=== PATIENT | male | born 1960 | race Caucasian/White ===

== ENCOUNTER 2024-07-04 20:13 | Observation (INO) | payer OTHER ==
[2024-07-04] MEDS: Acetaminophen/HYDROcodone 325-10 MG Tab PO ONE (21:10)
[2024-07-04] MEDS: Gabapentin 300 MG Cap PO ONE (21:15)
[2024-07-04] MEDS: HYDROmorphone 0.5 MG/0.5 ML Syringe IVPUSH ONE (22:39)
[2024-07-05] MEDS ORDERED: LORazepam 2 MG/ML SDV IV PRN (00:36)
[2024-07-05] MEDS ORDERED: Acetaminophen 325 MG Tab PO PRN (00:36)
[2024-07-05] MEDS ORDERED: Naloxone 0.4 MG/ML SDV IVPUSH PRN (00:36)
[2024-07-05 00:54] LABS: BASOPHILS PERCENT AUTO 0.3 % (0.1-1.3); EOSINOPHILS ABSOLUTE AUTO 0.07 K/uL (0.00-0.40); EOSINOPHILS PERCENT AUTO 0.9 % (0.0-5.4); HEMATOCRIT 36.4 % (38.4-49.7); HEMOGLOBIN 13.5 g/dL (12.9-16.9); IMMATURE GRAN ABSOLUTE AUTO 0.06 K/uL (0.00-0.23); IMMATURE GRAN PERCENT AUTO 0.8 % (0.0-0.7); LYMPHOCYTES ABSOLUTE AUTO 1.55 K/uL (0.8-3.3); MEAN CORPUSCULAR HEMOGLOBIN 32.9 pg (31.6-35.5); MEAN CORPUSCULAR HGB CONC 37.1 g/dL (31.6-35.5); MEAN CORPUSCULAR VOLUME 88.8 fL (81.4-99.0); MONOCYTES ABSOLUTE AUTO 0.77 K/uL (0.20-0.90); MONOCYTES PERCENT AUTO 10.4 % (3.3-12.6); NEUTROPHILS ABSOLUTE AUTO 4.91 K/uL (1.0-7.6); NEUTROPHILS PERCENT AUTO 66.6 % (40.0-78.1); PLATELET COUNT,PLT 211 K/uL (130-375); WHITE BLOOD CELL COUNT,WBC 7.4 K/uL (3.2-11.0)
[2024-07-05 00:56] LABS: BASOPHILS ABSOLUTE AUTO 0.02 K/uL (0.00-0.10)
[2024-07-05] MEDS: oxyCODONE 5 MG Tab PO PRN (01:06)
[2024-07-05] MEDS: Docusate Sodium 100 MG Cap PO SCH (01:06)
[2024-07-05] MEDS: Enoxaparin 40 MG/0.4 ML Syringe SUBCUT SCH ×2 (01:07→20:12)
[2024-07-05] MEDS: Sodium Chloride 0.9% 1,000 ML IV SCH (01:11)
[2024-07-05 01:13] LABS: CREATININE 1.2 mg/dL (0.8-1.3); EST CRCL DRUG DOSING (CG) 58.14 mL/min
[2024-07-05] MEDS: atorvaSTATin 10 MG Tab PO SCH (01:16)
[2024-07-05] MEDS: Lisinopril 5 MG Tab PO ONE (01:16)
[2024-07-05] MEDS: Ketorolac 30 MG/ML SDV IVPUSH SCH ×2 (01:26→08:24)
[2024-07-05] MEDS: Morphine 2 MG/ML SYRINGE IVPUSH PRN (02:31)
[2024-07-05 05:46] LABS: APPEARANCE,URINE CLEAR (CLEAR); BILIRUBIN,URINE NEGATIVE (NEGATIVE); COLOR,URINE YELLOW (YELLOW); GLUCOSE,URINE NEGATIVE (NEGATIVE); KETONES,URINE NEGATIVE (NEGATIVE); LEUKOCYTE ESTERASE,URINE NEGATIVE (NEGATIVE); NITRITE,URINE NEGATIVE (NEGATIVE); OCCULT BLOOD,URINE NEGATIVE (NEGATIVE); PROTEIN,URINE NEGATIVE (NEGATIVE); UROBILINOGEN,URINE 0.2 EU/dL (0.2-1.0)
[2024-07-05 05:55] LABS: AMORPHOUS SEDIMENT,URINE RARE; BACTERIA,URINE NOT SEEN; EPITHELIAL CELLS,URINE NOT SEEN; MUCUS,URINE NOT SEEN; RBC,URINE 0-5 (0-5); WBC,URINE NOT SEEN (0-5)
[2024-07-05] MEDS: Ondansetron 4 MG Tab.DIS PO PRN (08:31)
[2024-07-05] MEDS ORDERED: Gabapentin 100 MG Cap PO SCH ×2 (09:00)
[2024-07-05] MEDS: Gabapentin 300 MG Cap PO SCH (09:57)
[2024-07-05] MEDS: tiZANidine 2 MG Tab PO PRN (09:57)
[2024-07-05] MEDS: Trolamine Salicylate/Aloe Vera 10% Crm 85 GM Tube TOP PRN (12:47)
[2024-07-05] MEDS: Calcium Carbonate 500 MG Tab.Chew PO PRN (17:53)
[2024-07-05] MEDS: Lisinopril 5 MG Tab PO SCH (20:12)
[2024-07-05] MEDS ORDERED: ATORVASTATIN 10 MG PO SCH (21:00)
[2024-07-06] MEDS: Aspirin 81 MG Tab.Chew PO SCH (08:16)
== END 2024-07-06 17:00 | disposition home or self-care (01) ==
LOC: JP.ED 20:13 → JP.MS 07-05 00:02
PROVIDERS: ADMIT Nurse Practitioner; ATTEND Hospitalist
DX: M54.32 Sciatica, left side (principal); I10 Essential (primary) hypertension; E78.00 Pure hypercholesterolemia, unspecified; Z79.82 Long term (current) use of aspirin; Z79.899 Other long term (current) drug therapy
CPT/HCPCS: 36415; 72148; 80048; 81001; 85025; 96372; 96374; 96375; 96376; 99222; 99231; 99238; 99284; A9270; G0378; J1170; J1650; J1885; J2270; J7030; Q0162

== ENCOUNTER 2025-03-07 18:18 | Emergency (ER) | payer BC, OTHER | END 2025-03-07 20:11 | disposition home or self-care (01) | LOC: JP.ED 18:18 | DX: S43.102A Unspecified dislocation of left acromioclavicular joint, initial encounter (principal); I10 Essential (primary) hypertension; E78.00 Pure hypercholesterolemia, unspecified; Z79.899 Other long term (current) drug therapy; Z79.82 Long term (current) use of aspirin; V86.56XA Driver of dirt bike or motor/cross bike injured in nontraffic accident, initial encounter | CPT/HCPCS: 73030-26-LT; 73030-LT; 99283 ==